=== PATIENT | male | born 1940 | race Caucasian/White ===

== ENCOUNTER 2019-08-01 07:45 | Outpatient (REF) | payer MEDICARE, OTHER, SELFPAY ==
[2019-08-01 12:41] LABS: Chol HDL Ratio 2.85 mg/dL (1.0-5.00); Cholesterol 171 mg/dL (0-200); Glucose 91 mg/dL (65-115); HDL Cholesterol 60 mg/dL (60-100); LDL Cholesterol Calculated 99 mg/dL (50-129); LDL HDL Ratio 1.65 RATIO (0.00-3.22); Triglycerides 61 mg/dL (0-150)
[2019-08-01 13:23] LABS: Estmated Average Glucose 140; Hemoglobin A1C 6.5 % (4.0-6.0)
== END 2019-08-01 07:46 | disposition home or self-care (01) ==
LOC: LAB 07:45
PROVIDERS: Family Provider Internal Medicine; PCP Internal Medicine; Visit Provider Dermatology
DX: Z01.89 Encounter for other specified special examinations (principal)
CPT/HCPCS: 80061; 82947; 83036

== ENCOUNTER 2020-03-16 14:21 | Emergency (ER) | payer MEDICARE, OTHER, SELFPAY ==
[2020-03-16 14:26] VITALS: BP 129/70; PULSE 71; RESP 16; TEMP 36.5; O2SAT 97; BMI 25.7
--- NOTE | 2020-03-16 14:31 | ECG_ITS ---
[facility] Test Date: 2020-03-16 Pat Name: Sha Julio Department: Room: Gender: Male Cleater: : 1940 Requested By: Giuliano Ramirez Order Number: [id number] Ann MD: Rojas Aguirre M.D. Measurements Intervals [place] Rate: 59 P: 11 NM: 236 QRS: 37 QRSD: 83 T: 52 QT: 404 QTc: 401 Interpretive Statements SINUS BRADYCARDIA WITH FIRST DEGREE AV BLOCK Compared to ECG 08/11/2017 05:17:00 First degree AV block now present Sinus rhythm no longer present Electronically Signed On 03-16-2020 18:32:01 CDT by Rojas Aguirre M.D. [id number]
--- NOTE | 2020-03-16 14:34 | ED_ITS ---
HPI - General Adult General: Chief complaint: Extremity Injury, Upper Stated complaint: R INDEX FINGER LAC Time Seen by Provider: 03/16/20 14:25 History of Present Illness: HPI narrative: Patient has a laceration right index finger where he is folding knife closed on his finger. Patient coming by ambulance because he had a vasovagal episode afterwards possibly passed out when he saw his blood. He feels fine now. Does have a cardiac history patient said after he saw blood on his finger he felt lightheaded and laid down felt clammy felt nauseated called the ambulance because she said he was out of it for just a few seconds and she was worried about his presentation MD complaint: Vasovagal episode with laceration. Happened prior. Onset (ago): minute(s) Location: upper extremity Severity: mild Severity scale (1-10): 1 Associated symptoms: Reports other (Patient had vasovagal episode after laceration.); Deny chest pain, dyspnea, headache(s), nausea, rash or vomiting Review of Systems Narrative: Patient says he feels fine now. Patient said he felt diaphoretic and nauseated after he saw the blood on his finger from the knife cut. Said he feels great now never had any chest pain no shortness of breath. Const: Denies: fever(s), chills or body aches Eyes: Denies: change in vision or blurry vision ENMT: Denies: throat pain or nasal congestion Card: Reports: other (Patient did have a vasovagal episode after he cut his finger with a knife feels fine now.); Denies: chest pain or dyspnea on exertion Resp: Denies: dyspnea, productive cough or non-productive cough GI: Denies: abdominal pain, nausea or vomiting : Denies: difficulty urinating Musc: Denies: extremity pain Skin/Breast: Reports: other (Laceration right finger. Folding knife closed on his finger.); Denies: rash Neuro: Denies: headache(s) Psych: Denies: anxiety or depression Suhail/Lymph: Denies: easy bruising [facility] ED PFSH: Medical History (Updated 03/16/20 @ 15:01 by JOHN Harrington) ASHD (arteriosclerotic heart disease) Atrial fibrillation CHF (congestive heart failure) CVA (cerebral vascular accident) Diabetes Dyslipidemia HTN (hypertension) Myocardial infarction Surgical History S/P PTCA (percutaneous transluminal coronary angioplasty) Family History Father DVT (deep venous thrombosis) Social History Smoking and tobacco status: former smoker Alcohol intake: never Household members: spouse Marital status: Physical Exam Const: COMMON NORMALS: no acute distress and patient oriented x3 Chest: COMMONS NORMALS: normal inspection of the chest Resp: COMMON NORMALS: clear to auscultation bilaterally AUSCULTATION: clear to auscultation bilaterally Cardio: COMMON NORMALS: regular rate RATE: regular rate GI: COMMON NORMALS: Normal to inspection, nondistended, normoactive bowel sounds present Extremity: RIGHT UPPER EXTREMITY: Yes hand & digits (Right index finger MIP joint has small laceration to the lateral aspect nonbleeding presently. Distal neurovascular intact.) Neuro: COMMON NORMALS: patient oriented x3 and CN's II-XII intact bilaterally Procedures Laceration Laceration 1: Site: hand Side (If applicable): right Size (cm): 2 Description: linear Depth: simple, single layer Skin layer closed with: other (Skin adhesive) Course Vital Signs: Vital signs: Vital Signs Temperature 97.7 F 03/16/20 14:26 Pulse Rate 68 03/16/20 15:16 Respiratory Rate 14 03/16/20 15:16 Blood Pressure 124/80 03/16/20 15:16 Pulse Oximetry 99 03/16/20 15:16 MDM - General Adult MDM Narrative: Medical decision making narrative: Discussed with patient symptoms that he had of the vagal episode. Discussed proper care of laceration. Also some need follow-up with his heart care doctor. I asked him go ahead and call his heart care doctor tomorrow and relate his signs symptoms he had to see if they would like to do a follow-up with him patient states he doing fine feels good now realizes episode was a vagal episode at bedside she understands relates same signs and symptoms as patient described. Patient denies any chest pain shortness of breath or diaphoresis. Discussed case with Dr. Araujo EKG shows sinus bradycardia . ventricular rate 59 bpm NJ interval 2 3 6 ms QRS duration 83 Gerda Discharge Plan Discharge Patient Disposition: Home Clinical Impression: Laceration, Vaso vagal episode Condition: Stable Prescriptions: No Action hydrocodone-acetaminophen 5-325 mg tablet 1 tab PO Q6H PRNRF: 0 metoprolol tartrate 25 mg tablet 25 mg PO BID RF: 0 Combigan 0.2-0.5 % drops 1 drop ophthalmic (eye) BID RF: 0 latanoprost [Xalatan] 0.005 % drops 1 drop ophthalmic (eye) DAILY RF: 0 simvastatin 40 mg tablet 40 mg PO DAILY RF: 0 aspirin [Aspir-81] 81 mg tablet,delayed release (DR/EC) 81 mg PO DAILY RF: 0 Discharge Orders: Discharge Order (Routine); Ordered 03/16/20 Ordered By: Giuliano Ramirez Referrals: Glen Manning DO [Primary Care Provider] - Discharge Diet: Usual diet Discharge Activity: Limit activity as instructed Patient Instructions: Skin Adhesive Care (ED) Activity Restrictions/Additional Instructions: Keep fingers manju taped for 24 hours. Follow-up your family medical provider as needed. Monitor for any other signs symptoms of heart problems. Notify your heart care doctor that you had a vagal episode. Discharge Date/Time: 03/16/20 15:23 Coding Level of Care Code ED Proof Coins Inspector for Chg Fwd Exam Expanded Problem Focused
[2020-03-16 15:16] VITALS: BP 124/80; PULSE 68; RESP 14; O2SAT 99
== END 2020-03-16 15:23 | disposition home or self-care (01) ==
LOC: ER 15:20
PROVIDERS: Emergency Provider Nurse Practitioner Family; PCP Internal Medicine
DX: S61.210A Laceration without foreign body of right index finger without damage to nail, initial encounter (principal); W26.0XXA Contact with knife, initial encounter; R55 Syncope and collapse; I48.91 Unspecified atrial fibrillation; I11.0 Hypertensive heart disease with heart failure; I50.9 Heart failure, unspecified; Z86.73 Personal history of transient ischemic attack (TIA), and cerebral infarction without residual deficits; E11.9 Type 2 diabetes mellitus without complications; E78.5 Hyperlipidemia, unspecified; I25.2 Old myocardial infarction; Z87.891 Personal history of nicotine dependence
CPT/HCPCS: 12001; 12345; 93005; 99282; 99283

== ENCOUNTER 2021-12-27 06:00 | Outpatient (RCR) | payer MEDICARE, OTHER, SELFPAY | END 2022-01-22 23:59 | disposition home or self-care (01) | LOC: SPT 06:00 | PROVIDERS: PCP Internal Medicine; Referring Provider Chiropractor; Visit Provider Chiropractor | DX: M54.50 Low back pain, unspecified (principal) | CPT/HCPCS: 97110; 97161 ==

== ENCOUNTER → 2022-02-10 08:55 | Outpatient (BNVA) | payer MEDICARE, OTHER, SELFPAY | PROVIDERS: PCP Internal Medicine; Visit Provider Internal Medicine | DX: I25.10 Atherosclerotic heart disease of native coronary artery without angina pectoris (principal); E78.5 Hyperlipidemia, unspecified; E11.8 Type 2 diabetes mellitus with unspecified complications; Z79.84 Long term (current) use of oral hypoglycemic drugs; I48.91 Unspecified atrial fibrillation; I11.0 Hypertensive heart disease with heart failure; I50.9 Heart failure, unspecified; Z98.61 Coronary angioplasty status; Z87.891 Personal history of nicotine dependence; I25.2 Old myocardial infarction | CPT/HCPCS: 99213 ==

== ENCOUNTER → 2022-11-14 09:03 | Outpatient (BNVA) | payer MEDICARE, OTHER, SELFPAY | PROVIDERS: PCP Internal Medicine; Visit Provider Nurse Practitioner Family | DX: I25.10 Atherosclerotic heart disease of native coronary artery without angina pectoris (principal); I48.91 Unspecified atrial fibrillation; I11.0 Hypertensive heart disease with heart failure; I50.9 Heart failure, unspecified; Z87.891 Personal history of nicotine dependence; Z86.73 Personal history of transient ischemic attack (TIA), and cerebral infarction without residual deficits | CPT/HCPCS: 99214 ==

== ENCOUNTER 2022-11-17 09:58 | Outpatient (CLI) | payer MEDICARE, OTHER, SELFPAY ==
--- NOTE | 2022-11-17 10:15 | USCV_ITS ---
hSa Julio Age: 82 Gender: M : 1940 Exam Date: 11/17/2022 10:19 Ordering Phys: Erin Last Technologist: Exam Location: [facility] [place]_ Indication: pad RIGHT LEFT Brachial 119.00 mmHg Brachial 116.00 mmHg Pressure (mmHg) Waveform Pressure (mmHg) Waveform 117.00 PHARMACISTS 126.00 115.00 DPA 114.00 0.98 Ankle/Brachial Index 1.00 117.00 Pre-Exercise Toe Pressure 114.00 0.98 Pre-Exercise Toe/Brachial Index 0.96 FINDINGS Normal bilateral DANTE's and TBI's , no significant stenosis. CONCLUSIONS No significant lower extremity stenosis or occlusions. Dr. Rocío Pete DO (Electronically Signed) Final Date: 17 Nov 2022 16:38 S
== END 2022-11-17 09:59 | disposition home or self-care (01) ==
PROVIDERS: PCP Internal Medicine; Visit Provider Nurse Practitioner Family
DX: I25.10 Atherosclerotic heart disease of native coronary artery without angina pectoris (principal); I73.9 Peripheral vascular disease, unspecified
CPT/HCPCS: 93922; 99214

== ENCOUNTER → 2023-05-29 10:44 | Outpatient (BNVA) | payer MEDICARE, OTHER, SELFPAY | PROVIDERS: PCP Internal Medicine; Visit Provider Internal Medicine Cardiovascular Disease | DX: Z98.61 Coronary angioplasty status (principal); E78.5 Hyperlipidemia, unspecified; E11.9 Type 2 diabetes mellitus without complications; I48.91 Unspecified atrial fibrillation; I11.0 Hypertensive heart disease with heart failure; I50.9 Heart failure, unspecified; I25.10 Atherosclerotic heart disease of native coronary artery without angina pectoris; I25.2 Old myocardial infarction; Z86.73 Personal history of transient ischemic attack (TIA), and cerebral infarction without residual deficits; Z87.891 Personal history of nicotine dependence | CPT/HCPCS: 99213 ==

== ENCOUNTER → 2023-08-21 14:08 | Outpatient (BNVA) | payer MEDICARE, OTHER, SELFPAY | PROVIDERS: PCP Internal Medicine; Referring Provider Internal Medicine; Visit Provider Specialist | DX: G56.23 Lesion of ulnar nerve, bilateral upper limbs (principal) | CPT/HCPCS: 95911 ==

== ENCOUNTER → 2023-12-19 11:05 | Outpatient (BNVA) | payer MEDICARE, OTHER, SELFPAY | PROVIDERS: PCP Internal Medicine; Visit Provider Nurse Practitioner | DX: G56.21 Lesion of ulnar nerve, right upper limb | CPT/HCPCS: 73080; 99204 ==

== ENCOUNTER → 2023-12-24 10:52 | Outpatient (BNVA) | payer MEDICARE, OTHER, SELFPAY | PROVIDERS: PCP Internal Medicine; Visit Provider Nurse Practitioner | DX: Z01.818 Encounter for other preprocedural examination (principal); G56.21 Lesion of ulnar nerve, right upper limb; M54.2 Cervicalgia; M25.521 Pain in right elbow | CPT/HCPCS: 80053; 81001; 85025; 99214 ==

== ENCOUNTER 2024-02-12 10:06 | Day surgery (SDC) | payer MEDICARE, OTHER, SELFPAY ==
[2024-02-12] VITALS (10 sets, daily range): BP systolic 125–186; BP diastolic 74–91; PULSE 60–90; RESP 16–18; TEMP 36.1; O2SAT 92–99; BMI 26.4
[2024-02-12] MEDS: gabapentin 300 mg Capsule PO (10:58)
[2024-02-12] MEDS: CELEcoxib 200 mg Capsule 400 MG PO (10:58)
[2024-02-12] MEDS: acetaminophen 1,000 MG/100 ML PIGGYBACK 400 MG IV (10:58)
--- NOTE | 2024-02-12 11:00 | P.ANESASSM_ITS ---
Pre-Anesthetic Assessment Height/Weight: Height 6 ft Weight 195 lb Pulse Resp BP Pulse Ox O2 Del Method 90 18 134/75 96 Room Air 02/12/24 10:30 02/12/24 10:30 02/12/24 10:30 02/12/24 10:30 02/12/24 10:33 Operation Date: 02/12/24 11:45 Proposed Procedures p Cubital Tunnel Release(Right) - Glory Méndez MD Last intake: Intake Last Liquid Date 02/11/24 Last Liquid Time 22:00 Last Solid Date 02/11/24 Last Solid Time 19:00 Social 40 pack yr history/quit in 99 Exam alert and oriented x 3 Airway Submandibular: within normal limits Cervical ROM: within normal limits Mallampati: Class III Dentition: false Pulmonary None reported CV/HEM Coronary Artery Disease Anesthetic Plan ASA status: 3 Anesthesia: General Other: No prior issues with anesthesia NPO since MN Labs reviewed METS>4 CAD, most recent stent in 2017 BB taken today No blood thinners EKG showing SR with 1st degree AV block Patient consents to GA with LMA Medications/Allergies Home Medications Medication Instructions Recorded Confirmed Last Taken Type aspirin 81 mg tablet,delayed 81 mg PO DAILY 11/05/19 02/11/24 01/11/24 History release (Aspir-) brimonidine 0.2 %-timolol 0.5 % 1 drop ophthalmic (eye) BID 11/05/19 02/11/24 02/11/24 History eye drops (Combigan) latanoprost 0.005 % eye drops 1 drop ophthalmic (eye) DAILY 11/05/19 02/11/24 0 02/11/24 History (Xalatan) metoprolol tartrate 25 mg tablet 25 mg PO BID 11/05/19 02/11/24 02/11/24 History simvastatin 40 mg tablet 40 mg PO DAILY 11/05/19 02/11/24 02/11/24 History diclofenac sodium 3 % topical gel 1 applic topical BID PRN arthritis 12/24/23 02/11/24 Unknown Rx pain 90 days #100 grams cetirizine 10 mg tablet 10 mg PO DAILY PRN Allergy Symptoms 01/04/24 02/11/24 01/09/24 History omega 0-aol-jqe-fish oil 100 1 cap PO DAILY 01/04/24 02/11/24 02/10/24 History mg-160 mg-1,000 mg capsule (Fish Oil) tamsulosin 0.4 mg capsule 0.4 mg PO DAILY 01/04/24 02/11/24 02/11/24 History timolol maleate 0.5 % eye drops 1 drp ophthalmic (eye) BID 02/11/24 02/11/24 02/11/24 History Allergies Allergy/AdvReac Type Severity Reaction Status Date / Time No Known Allergies Allergy Verified 02/11/24 10:15 [facility] Anesthesia Medical History Neck pain on right side Ulnar neuropathy at elbow of right upper extremity Myocardial infarction Dyslipidemia Diabetes CVA (cerebral vascular accident) Atrial fibrillation HTN (hypertension) CHF (congestive heart failure) ASHD (arteriosclerotic heart disease) Surgical History S/P PTCA (percutaneous transluminal coronary angioplasty) Family History Father DVT (deep venous thrombosis) Social History Smoking and tobacco/nicotine status: former use of tobacco/nicotine Alcohol intake: never Household members: spouse Marital status: Data Anesthesia Cardiac Studies: No Data to Display
[2024-02-12] MEDS: sodium chloride 0.9% 1,000 ML 30 ML IV (11:06)
--- NOTE | 2024-02-12 12:28 | W.PM.OPSUD ---
Surgery/Procedure H&P Update DATE OF PROCEDURE: February 12, 2024 DATE H&P PERFORMED: 01/04/24 H&P UPDATE INFORMATION: I have reviewed H&P completed within last 30 days, I have examined patient prior to procedure and No changes to prior documentation PLANNED PROCEDURE: Operation Date: 02/12/24 11:45 Proposed Procedures p Cubital Tunnel Release(Right) - Glory Méndez MD
[2024-02-12] MEDS: ceFAZolin 2,000 MG in sodium chloride 0.9% (plus) 50 ML 100 MG IV (12:30)
--- NOTE | 2024-02-12 12:32 | W.PM.OPSFHP ---
Same Day Surgery H&P Indication for Procedure/HPI DATE OF PROCEDURE: February 12, 2024 CHIEF COMPLAINT/INDICATIONFOR SURGICAL PROCEDURE: Right small and ring finger numbness and pain PREOP DIAGNOSIS: Right cubital tunnel syndrome PLANNED PROCEDURE: Operation Date: 02/12/24 11:45 Proposed Procedures p Cubital Tunnel Release(Right) - Glory Méndez MD Medications/Allergies* Home Medications Medication Instructions Recorded Confirmed Type aspirin 81 mg tablet,delayed 81 mg PO DAILY 11/05/19 02/11/24 History release (Aspir-) brimonidine 0.2 %-timolol 0.5 % 1 drop ophthalmic (eye) BID 11/05/19 02/11/24 History eye drops (Combigan) latanoprost 0.005 % eye drops 1 drop ophthalmic (eye) DAILY 11/05/19 02/11/24 History (Xalatan) metoprolol tartrate 25 mg tablet 25 mg PO BID 11/05/19 02/11/24 History simvastatin 40 mg tablet 40 mg PO DAILY 11/05/19 02/11/24 History cetirizine 10 mg tablet 10 mg PO DAILY PRN Allergy Symptoms 01/04/24 02/11/24 History omega 5-lqw-fhg-fish oil 100 1 cap PO DAILY 01/04/24 02/11/24 History mg-160 mg-1,000 mg capsule (Fish Oil) tamsulosin 0.4 mg capsule 0.4 mg PO DAILY 01/04/24 02/11/24 History timolol maleate 0.5 % eye drops 1 drp ophthalmic (eye) BID 02/11/24 02/11/24 History Allergies/Adverse Reactions Allergy/AdvReac Type Severity Reaction Status Date / Time No Known Allergies Allergy Verified 02/11/24 10:15 Current Medications: Generic Name Dose Route Start Last Admin Trade Name Freq PRN Reason Stop Dose Admin Sodium Chloride 1,000 mls @ 30 mls/hr 02/12/24 10:30 02/12/24 11:06 Sodium Chloride 0.9% IV 02/13/24 10:29 30 mls/hr .Q24H NATE Administration Pertinent History/Comorbid Conditions* Medical History (Updated 12/24/23 @ 17:51 by LILIBETH Titus) Neck pain on right side Ulnar neuropathy at elbow of right upper extremity Myocardial infarction Dyslipidemia Diabetes CVA (cerebral vascular accident) Atrial fibrillation HTN (hypertension) CHF (congestive heart failure) ASHD (arteriosclerotic heart disease) Surgical History (Updated 11/07/19 @ 09:05 by Tyrell Schroeder MD) S/P PTCA (percutaneous transluminal coronary angioplasty) Family History (Updated 11/05/19 @ 10:38 by Christine Sutherland RN) DVT (deep venous thrombosis) Father Social History Smoking and tobacco/nicotine status: former use of tobacco/nicotine Alcohol intake: never Household members: spouse Marital status: Pertinent Exam Findings alert, oriented x 3, clear to auscultation bilaterally, regular rate & rhythm, operative site marked and procedure specific exam findings (Positive Tinel's at right elbow) Recommendations Surgery/Procedure today Coding Level of Care Code Acute Code for Chg Nivia
--- NOTE | 2024-02-12 12:33 | W.PM.OPSFHP ---
Same Day Surgery H&P Indication for Procedure/HPI DATE OF PROCEDURE: February 12, 2024 CHIEF COMPLAINT/INDICATIONFOR SURGICAL PROCEDURE: Right hand ring and small finger numbness, weakness, and pain PREOP DIAGNOSIS: Right cubital tunnel syndrome PLANNED PROCEDURE: Operation Date: 02/12/24 11:45 Proposed Procedures p Cubital Tunnel Release(Right) - Glory Méndez MD Medications/Allergies* Home Medications Medication Instructions Recorded Confirmed Type aspirin 81 mg tablet,delayed 81 mg PO DAILY 11/05/19 02/11/24 History release (Aspir-) brimonidine 0.2 %-timolol 0.5 % 1 drop ophthalmic (eye) BID 11/05/19 02/11/24 History eye drops (Combigan) latanoprost 0.005 % eye drops 1 drop ophthalmic (eye) DAILY 11/05/19 02/11/24 History (Xalatan) metoprolol tartrate 25 mg tablet 25 mg PO BID 11/05/19 02/11/24 History simvastatin 40 mg tablet 40 mg PO DAILY 11/05/19 02/11/24 History cetirizine 10 mg tablet 10 mg PO DAILY PRN Allergy Symptoms 01/04/24 02/11/24 History omega 2-ymx-bfj-fish oil 100 1 cap PO DAILY 01/04/24 02/11/24 History mg-160 mg-1,000 mg capsule (Fish Oil) tamsulosin 0.4 mg capsule 0.4 mg PO DAILY 01/04/24 02/11/24 History timolol maleate 0.5 % eye drops 1 drp ophthalmic (eye) BID 02/11/24 02/11/24 History Allergies/Adverse Reactions Allergy/AdvReac Type Severity Reaction Status Date / Time No Known Allergies Allergy Verified 02/11/24 10:15 Current Medications: Generic Name Dose Route Start Last Admin Trade Name Freq PRN Reason Stop Dose Admin Sodium Chloride 1,000 mls @ 30 mls/hr 02/12/24 10:30 02/12/24 11:06 Sodium Chloride 0.9% IV 02/13/24 10:29 30 mls/hr .Q24H NATE Administration Pertinent History/Comorbid Conditions* Medical History (Updated 12/24/23 @ 17:51 by JOHN Titus-ROSEMARY) Neck pain on right side Ulnar neuropathy at elbow of right upper extremity Myocardial infarction Dyslipidemia Diabetes CVA (cerebral vascular accident) Atrial fibrillation HTN (hypertension) CHF (congestive heart failure) ASHD (arteriosclerotic heart disease) Surgical History (Updated 11/07/19 @ 09:05 by Tyrell Schroeder MD) S/P PTCA (percutaneous transluminal coronary angioplasty) Family History (Updated 11/05/19 @ 10:38 by Christine Sutherland RN) DVT (deep venous thrombosis) Father Social History Smoking and tobacco/nicotine status: former use of tobacco/nicotine Alcohol intake: never Household members: spouse Marital status: Pertinent Exam Findings alert, oriented x 3, clear to auscultation bilaterally, regular rate & rhythm, operative site marked and procedure specific exam findings (Positive Tinel's at the elbow) Related Problem List Diagnoses (1) Ulnar neuropathy at elbow of right upper extremity: Recommendations Surgery/Procedure today Coding Level of Care Code Acute Code for Chg Fwd Diagnoses Ulnar neuropathy at elbow of right upper extremity G56.21
[2024-02-12] MEDS: BUPivacaine 0.5% INJ 30 mL XX (13:08)
--- NOTE | 2024-02-12 14:00 | PM.OP ---
Operative Report Date of procedure: February 12, 2024 Pre-op diagnosis: Right cubital tunnel syndrome Post-op diagnosis: Right cubital tunnel syndrome Post-op findings: Inflamed ulnar nerve with compression Procedure done: Right ulnar nerve decompression, cubital tunnel release Implants: None Specimens removed/disposition: None Pathology: None Surgeon: Glory Méndez MD Fur Finisher Seamstress: Marija Moe who services were required for retraction, positioning, and closure. Anesthesia: General (Per LMA, ASA 3) Estimated blood loss (mL): 1 Tourniquet time (min): 37 (At 250 mmHg) IV fluids (mL): 900 Urine output (mL): 0 Complications: None Findings: Compression across the ulnar nerve with purplish discoloration Condition: stable Disposition: PACU (Then return to same-day surgery for discharge to home) Brief History: This 83-year-old gentleman presented to the office complaining of right elbow pain and ulnar neuropathy. He had pain and numbness in the small and ring finger. Initially, he did not wish to proceed with surgical intervention, but, consequently, he elected to proceed secondary to the pain in his hand and inability to proceed activities of daily living. Procedure: The patient was brought to the operating theater. The patient was administered a general anesthetic per LMA, ASA 3. Following this, the patient's right upper extremity was prepped and draped with DuraPrep. It was draped free and subsequently a sterile tourniquet was placed high on the arm. Following prepping and draping and prior to surgical incision, a surgical pause was performed. At the time of surgical pause, we confirmed the site and side of surgery as well as appropriate and timely administration of preoperative antibiotics. Following the surgical pause, the arm was exsanguinated using an Claude wrap. The tourniquet was elevated to 250 mmHg and total tourniquet time was 37 minutes. When the patient was seen in the preoperative holding area, landmarks were marked. Incision was made slightly posterior to the ulnar nerve to protect it during the dissection. The incision was made over approximately a 4 to 5 inch area centered over the area between the medial epicondyle and the olecranon. The dissection was continued through skin and soft tissues carefully. We also incised the flexor aponeurosis over the ulnar nerve taking care to isolate the ulnar nerve and avoid injury to it. The aponeurotic band over the nerve was divided and the nerve was traced distally between the two heads of the flexor carpi ulnaris muscle. Care was taken to protect neurovascular structures as well as any branches of the nerve. The fasciotomy of the flexor carpi ulnaris was accomplished to a point where I could pass my finger along the nerve and not feel any area which compressed my small finger. The ulnar nerve was left lying in its bed and it was also evaluated proximally to assure there were no further bands of compression. Gently I was able to extend the release proximally as well to assure that once again I could pass a small finger without any obvious areas which compressed across the ulnar nerve. In this fashion, we had completed the release of the entire cubital tunnel without injury to the nerve. Hemostasis was obtained. The nerve was noted to be purplish and somewhat flattened consistent with compression in this area. Once we had completely released proximally and distally and were able to palpate and directly visualize the nerve, attention was directed to closure. We then passively extended and flexed the elbow to assure that the nerve remained in its cubital area. Subluxation of the nerve did not occur and therefore attention was directed to closure. Skin closure was the only closure accomplished in addition to the subcutaneous tissues. We closed the subcutaneous tissues with 2-0 Monocryl and subsequently closed the skin with a 3-0 Monocryl subcuticular stitch. Patient was then placed in a large soft dressing consisting of Dermabond, Steri-Strips, OpSite, sterile soft roll and an Claude wrap. The patient was then placed in an elbow splint to protect from range of motion. In the Recovery Room, the patient was neurologically intact. There were no complications. There were no specimens. The procedure was well tolerated. Patient will be discharged home to follow-up with me in the office. Related Problem List Diagnoses (1) Ulnar neuropathy at elbow of right upper extremity:
--- NOTE | 2024-02-12 14:25 | ANE.PACU2 ---
Inpatient post-anesthesia follow up: Airway intact: Yes Vital signs: Temperature 97.0 F Pulse Rate 60 Respiratory Rate 17 Blood Pressure 176/88 Pulse Oximetry 97 Oxygen Delivery Me thod Room Air Oxygen Flow Rate 8 Fraction of Inspir ed Oxygen Hydration adequate: Yes Nausea and vomiting: No Pain level: 1 Mental status: Baseline
== END 2024-02-12 15:50 | disposition home or self-care (01) ==
PROVIDERS: PCP Internal Medicine; Visit Provider Specialist
PROC: (CPT 64718; principal; 2024-02-12 11:35)
DX: G56.21 Lesion of ulnar nerve, right upper limb (principal); Z79.82 Long term (current) use of aspirin; E78.5 Hyperlipidemia, unspecified; E11.9 Type 2 diabetes mellitus without complications; I48.91 Unspecified atrial fibrillation; I11.0 Hypertensive heart disease with heart failure; I50.9 Heart failure, unspecified; I25.10 Atherosclerotic heart disease of native coronary artery without angina pectoris; Z87.891 Personal history of nicotine dependence
CPT/HCPCS: 64718; J0131; J0690; J1100; J2405; J2704; J3010; J3490; J7030

== ENCOUNTER → 2024-02-27 14:37 | Outpatient (BNVA) | payer MEDICARE, OTHER, SELFPAY | PROVIDERS: PCP Internal Medicine; Visit Provider Specialist | DX: G56.21 Lesion of ulnar nerve, right upper limb (principal) | CPT/HCPCS: 99024 ==

== ENCOUNTER → 2024-06-02 14:59 | Outpatient (BNVA) | payer MEDICARE, OTHER, SELFPAY | PROVIDERS: PCP Internal Medicine; Visit Provider Internal Medicine Cardiovascular Disease | DX: I25.10 Atherosclerotic heart disease of native coronary artery without angina pectoris (principal); I48.91 Unspecified atrial fibrillation; I11.0 Hypertensive heart disease with heart failure; I50.9 Heart failure, unspecified | CPT/HCPCS: 99213 ==

== ENCOUNTER → 2025-01-12 10:40 | Outpatient (BNVA) | payer MEDICARE, OTHER, SELFPAY | PROVIDERS: PCP Internal Medicine; Referring Provider Family Medicine; Visit Provider Internal Medicine Rheumatology | DX: M25.50 Pain in unspecified joint (principal); Z79.899 Other long term (current) drug therapy; R79.82 Elevated C-reactive protein (CRP); Z71.85 Encounter for immunization safety counseling; M81.0 Age-related osteoporosis without current pathological fracture | CPT/HCPCS: 36415; 80076; 82085; 82306; 82550; 82565; 83520; 85025; 85651; 86140; 86480; 86704; 86803; 87340; 99204 ==

== ENCOUNTER 2025-03-02 08:25 | Outpatient (CLI) | payer MEDICARE, OTHER, SELFPAY ==
[2025-03-02 09:31] LABS: Hematocrit 41.4 % (37-53); Hemoglobin 13.50 g/dL (11.27-16.99); Mean Corpuscular HGB Conc 32.6 g/dL (30-55); Mean Corpuscular Hemoglobin 29.2 pg (27-33); Mean Corpuscular Volume 89.6 fl (82-101); Nucleated Red Blood Cells % 0 %; Platelet Count 246 10^3/cmm (157-399); Red Blood Count 4.62 10^6/uL (3.85-5.65); White Blood Count 7.16 10^3/uL (3.29-11.43)
[2025-03-02 09:56] LABS: Alanine Aminotransferase 12 U/L (0-41); Albumin Level 3.8 g/dL (3.5-5.2); Alkaline Phosphatase 70 U/L (40-130); Aspartate Amino Transferase 14 U/L (0-40); Globulin 2.9 g/dL (1.3-4.6); Total Protein 6.7 g/dL (6.6-8.7)
== END 2025-03-02 08:26 | disposition home or self-care (01) ==
LOC: LAB 08:28
PROVIDERS: PCP Internal Medicine; Visit Provider Internal Medicine Rheumatology
DX: Z79.899 Other long term (current) drug therapy (principal)
CPT/HCPCS: 36415; 80076; 82565; 85025; 85651; 86140

== ENCOUNTER → 2025-06-02 11:45 | Outpatient (BNVA) | payer MEDICARE, OTHER, SELFPAY | PROVIDERS: PCP Internal Medicine; Visit Provider Internal Medicine Rheumatology | DX: R79.82 Elevated C-reactive protein (CRP) (principal); Z79.899 Other long term (current) drug therapy; Z71.85 Encounter for immunization safety counseling; M06.041 Rheumatoid arthritis without rheumatoid factor, right hand; M06.042 Rheumatoid arthritis without rheumatoid factor, left hand; M47.892 Other spondylosis, cervical region | CPT/HCPCS: 72040; 80076; 82306; 82565; 85025; 85651; 86140; 99214 ==

== ENCOUNTER → 2025-06-04 15:08 | Outpatient (BNVA) | payer MEDICARE, OTHER, SELFPAY | PROVIDERS: PCP Internal Medicine; Visit Provider Orthopaedic Surgery | DX: M54.2 Cervicalgia (principal) | CPT/HCPCS: 72050; 99203; 99214 ==

== ENCOUNTER 2025-06-10 13:44 | Outpatient (CLI) | payer MEDICARE, OTHER, SELFPAY ==
--- NOTE | 2025-06-10 13:45 | MR_ITS ---
WS: [id number] MRI CERVICAL SPINE NONCONTRAST HISTORY: neck pain COMPARISON: None available. Technique: Multiplanar, multisequence noncontrast imaging of the cervical spine. C3-4 anterolisthesis by 2.7 mm. Disc spaces are all narrowed. No fractures. Signal within the cervical cord is normal. Visualized posterior fossa is unremarkable. Craniocervical junction, C1 and C2 relationship, odontoid process and soft tissues are normal. C2-C3: Central disc protrusion and osteophytic ridging and facet arthritis. Mild central and LEFT foraminal stenosis. Facet joint arthropathy encroaching upon the posterior thecal sac. C3-C4: Mild annular disc bulging with a shallow central disc protrusion. Bilateral facet arthritis. No stenosis. C4-C5: Diffuse annular disc bulging with osteophytic ridging and mild facet arthritis. Mild bilateral foraminal stenosis predominantly due to osteophytes. Greater osteophyte RIGHT foramen. C5-C6: Diffuse annular disc bulging and osteophytic ridging and facet arthritis. Effacement of ventral CSF. Mild central and moderate bilateral foraminal stenosis. C6-C7: Diffuse marked annular disc bulging and osteophytic ridging. Central and foraminal disc osteophyte complexes. Effacement of the ventral CSF. Moderate to severe central and moderate bilateral foraminal stenosis. C7-T1: No stenosis. Paravertebral soft tissues are normal. MR/MR cervical spin wo con* [id number] IMPRESSION: 1. Degenerative disc disease and facet joint arthropathy. 2. Moderate to severe central stenosis with moderate bilateral foraminal steno sis due to combination of disc and osteophyte and facet disease at C6-7. 3. Mild central and moderate foraminal stenosis at C5-6. 4. Mild bilateral foraminal stenosis at C4-5 greater on the RIGHT. 5. Mild central LEFT foraminal stenosis at C2-3. 6. Small central disc protrusion at C3-4.
== END 2025-06-10 13:45 | disposition home or self-care (01) ==
LOC: RAD 13:47
PROVIDERS: PCP Internal Medicine; Visit Provider Orthopaedic Surgery
DX: M47.892 Other spondylosis, cervical region (principal); M48.02 Spinal stenosis, cervical region; M50.21 Other cervical disc displacement, high cervical region
CPT/HCPCS: 72141

== ENCOUNTER → 2025-06-16 08:41 | Outpatient (BNVA) | payer MEDICARE, OTHER, SELFPAY | PROVIDERS: PCP Internal Medicine; Visit Provider Orthopaedic Surgery | DX: M48.02 Spinal stenosis, cervical region (principal); Z51.89 Encounter for other specified aftercare | CPT/HCPCS: 99213 ==